=== PATIENT | female | born 1975 | race African-American/Black ===

== ENCOUNTER 2018-02-10 19:01 | Emergency (ER) | payer MEDICAID, OTHER ==
[~2018-02-10] VITALS: Ht 170.2 cm; Wt 79.4 kg
[2018-02-10 19:14] VITALS: BP 135/100
--- NOTE | 2018-02-10 19:18 | NUR ---
TO LOBBY A/W BED, AND XRAY, VSS, VIA W/C, FRANSICO NOTED
--- NOTE | 2018-02-10 19:32 | NUR ---
PT RETURN FROM XRAY TO LOBBY
--- NOTE | 2018-02-10 19:49 | NUR ---
PT TAKEN TO BED 3
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
[2018-02-10] MEDS ORDERED: KETOROLAC 60 MG/2 ML VIAL IM ONE (20:15)
--- NOTE | 2018-02-10 21:16 | NUR ---
Dr. Urbano evaluating patient at bedside.
--- NOTE | 2018-02-10 21:35 | NUR ---
PER VERBAL ORDER FROM DR, ANKLE STIRRUP SPLINT APPLIED TO PT L FOOT. +CSM DISTAL TO WRAP PRIOR TO AND AFTER APPLICATION.
--- NOTE | 2018-02-10 21:39 | NUR ---
PER VERBAL ORDER FROM DR, PT GIVEN INSTRUCTION FOR CRUTCHES. PT DEMONSTRATED PROPER USE FOR APPROXIMATELY 20 FEET, INCLUDING RISING FROM SITTING POSITION AND CLIMBING UP STAIRS. APPROXIMATELY 2 INCH GAP SPACE BETWEEN PT ARMPITS AND START OF CRUTCHES AND PT ELBOWS FLEXED AT 30 DEGREES FROM HANDLES.
[2018-02-10 21:40] VITALS: BP 138/94
--- NOTE | 2018-02-10 21:40 | NUR ---
Patient discharged with v/s stable. Written and verbal after care instructions given and explained. Patient alert, oriented and verbalized understanding of instructions. Ambulatory with steady gait. All questions addressed prior to discharge. ID band removed. Patient advised to follow up with PMD. Rx of NORCO AND MOTRIN given. Patient educated on indication of medication including possible reaction and side effects. Opportunity to ask questions provided and answered.
== END 2018-02-10 21:40 | disposition home or self-care (01) ==
LOC: MED 19:01
DX: S82.832A Other fracture of upper and lower end of left fibula, initial encounter for closed fracture (principal); F17.200 Nicotine dependence, unspecified, uncomplicated; W18.39XA Other fall on same level, initial encounter; Y93.89 Activity, other specified; Y92.89 Other specified places as the place of occurrence of the external cause; Y99.8 Other external cause status
CPT/HCPCS: 29515; 73610; 96372; 99284; J1885

== ENCOUNTER 2018-09-01 10:35 | Emergency (ER) | payer MEDICAID ==
[~2018-09-01] VITALS: Ht 170.2 cm; Wt 81.2 kg
[2018-09-01 10:45] VITALS: BP 130/92
--- NOTE | 2018-09-01 10:47 | NUR ---
PT AMBULATES TO BED 12
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
--- NOTE | 2018-09-01 12:10 | NUR ---
Patient being evaluated by physician at bedside.
[2018-09-01] MEDS ORDERED: KETOROLAC 60 MG/2 ML VIAL IM ONE (12:25)
--- NOTE | 2018-09-01 12:32 | NUR ---
PT TAKEN TO X-RAY
--- NOTE | 2018-09-01 12:48 | NUR ---
PT IS BACK FROM X-RAY
--- NOTE | 2018-09-01 13:00 | NUR ---
PT UP IN BED, AWAKE, ON THE PHONE, EVEN AND UNLABORED BREATHING, VSS.
[2018-09-01] MEDS ORDERED: BACITRACIN OINT 500 UNITS/GM PKT TP ONE (15:05)
[2018-09-01] MEDS ORDERED: CYCLOBENZAPRINE 10 MG TAB PO ONE (15:05)
[2018-09-01 15:25] VITALS: BP 134/88
--- NOTE | 2018-09-01 15:25 | NUR ---
Patient discharged with v/s stable. Written and verbal after care instructions given and explained. Patient alert, oriented and verbalized understanding of instructions. Ambulatory with steady gait. All questions addressed prior to discharge. ID band removed. Patient advised to follow up with PMD. Rx of Ibuprofen, Flexeril given. Patient educated on indication of medication including possible reaction and side effects. Opportunity to ask questions provided and answered.
== END 2018-09-01 15:25 | disposition home or self-care (01) ==
LOC: MED 10:35
DX: M54.2 Cervicalgia (principal); M25.511 Pain in right shoulder; M25.512 Pain in left shoulder
CPT/HCPCS: 72050; 96372; 99283; J1885

== ENCOUNTER 2021-03-18 02:43 | Emergency (ER) | payer MEDICAID ==
[~2021-03-18] VITALS: Ht 170.2 cm; Wt 79.1 kg
[2021-03-18 03:04] VITALS: BP 159/132
[2021-03-18] MEDS ORDERED: NACL 0.9% 1,000 ML IV ONE (03:15)
[2021-03-18] MEDS ORDERED: LORazepam 2 MG/ML VIAL IVP ONE (03:15)
[2021-03-18] MEDS ORDERED: CLONIDINE HYDROCHLORIDE 0.1 MG TAB PO ONE (03:15)
[2021-03-18 03:43] LABS: BASOPHILS # (AUTO) 0.1 K/uL (0.00-0.22); BASOPHILS % (AUTO) 1.2 % (0.0-2.0); EOSINOPHILS # (AUTO) 0.1 K/uL (0-0.4); EOSINOPHILS % (AUTO) 1.8 % (0.0-4.0); HEMATOCRIT 41.9 % (36-48); LYMPHOCYTES # (AUTO) 1.3 K/uL (2.5-16.5); MEAN CORPUSCULAR HEMOGLOBIN 30 pg (27-31); MEAN CORPUSCULAR HGB CONC 33 g/dL (33-37); MEAN CORPUSCULAR VOLUME 90.8 fL (80-94); MONOCYTES # (AUTO) 1.3 K/uL (0.8-1.0); MONOCYTES % (AUTO) 20.1 % (1.7-9.3); NEUTROPHILS # (AUTO) 3.6 K/uL (1.8-7.7); NEUTROPHILS % (AUTO) 56.9 % (42.2-75.2); PLATELET COUNT (AUTO) 408 K/uL (140-450); RED BLOOD CELL COUNT(AUTO) 4.62 MIL/uL (4.20-5.40); RED CELL DISTRIBUTION WIDTH 12.8 % (11.6-13.7); WHITE BLOOD COUNT (AUTO) 6.3 K/uL (4.8-10.8)
[2021-03-18 03:47] LABS: ALBUMIN 4.4 g/dL (3.4-5.0); ANION GAP 17.2 (8-16); CARBON DIOXIDE 23.2 mmol/L (21-32); CREATININE 0.9 mg/dL (0.6-1.3); POTASSIUM 3.4 mmol/L (3.5-5.1); TOTAL BILIRUBIN 0.4 mg/dL (0.0-1.0)
[2021-03-18] MEDS ORDERED: POTASSIUM CHLORIDE 10 MEQ TABER PO ONE (04:05)
[2021-03-18] MEDS ORDERED: AMLO-271 PO (04:12)
[2021-03-18 04:58] VITALS: BP 142/102
--- NOTE | 2021-03-18 04:58 | NUR ---
Patient discharged with v/s stable. Written and verbal after care instructions given and explained. Patient alert, oriented and verbalized understanding of instructions. Ambulatory with steady gait. All questions addressed prior to discharge. ID band removed. Patient advised to follow up with PMD. Rx of AMLODIPINE BESYLATE given. Patient educated on indication of medication including possible reaction and side effects. Opportunity to ask questions provided and answered.
[2021-03-19] MEDS ORDERED: ATA25 PO (09:40)
== END 2021-03-18 04:58 | disposition home or self-care (01) ==
LOC: MED 02:43
DX: R00.2 Palpitations (principal); Z79.899 Other long term (current) drug therapy
CPT/HCPCS: 36415; 80053; 84484; 85025; 93005; 96361; 96374; 99284; J2060; J7030

== ENCOUNTER 2021-03-19 08:37 | Emergency (ER) | payer MEDICAID ==
[~2021-03-19] VITALS: Ht 170.2 cm; Wt 79.4 kg
[~2021-03-19 08:37] MED LIST: AMLO-271 PO
[2021-03-19 08:45] VITALS: BP 159/99
--- NOTE | 2021-03-19 08:56 | NUR ---
PT AMBULATED TO ER BED 4 WITH A STEADY GAIT.
[2021-03-19] MEDS ORDERED: HYDROXYZINE HYDROCHLORIDE 25 MG TAB PO STA (08:57)
--- NOTE | 2021-03-19 08:58 | NUR ---
49 y/o F BIB self for c/o elevated B/P SBP 180. Denies CP, Denies N/V/P. Neuro intact. Able to make all needs known. AOX4. Denies VERNON at this time. B/P: 151/103. PmHx: HTN Allergies: Denies Home Meds: Norvasc
--- NOTE | 2021-03-19 09:14 | NUR ---
Dr Josue at bedside, no blood draw needed per ERMD
--- NOTE | 2021-03-19 09:20 | NUR ---
Per FRANSICO Josue, pt ok to eat. Meal provided.
--- NOTE | 2021-03-19 09:33 | NUR ---
TIMMYD AT BEDSIDE EXPLAINING D/C AND MEDS
[2021-03-19] MEDS ORDERED: ATA25 PO (09:40)
[2021-03-19 09:59] VITALS: BP 145/101
--- NOTE | 2021-03-19 10:02 | NUR ---
Patient discharged with v/s stable. Written and verbal after care instructions given and explained. Patient alert, oriented and verbalized understanding of instructions. Ambulatory with steady gait. All questions addressed prior to discharge. ID band removed. Patient advised to follow up with PMD. Rx of ATARAX HCL given. Patient educated on indication of medication including possible reaction and side effects. Opportunity to ask questions provided and answered. ER MD AWARE OF D/C B/P AND HR.
== END 2021-03-19 09:59 | disposition home or self-care (01) ==
LOC: MED 08:37
DX: I10 Essential (primary) hypertension (principal); F41.9 Anxiety disorder, unspecified; F17.203 Nicotine dependence unspecified, with withdrawal; F12.23 Cannabis dependence with withdrawal; Z79.899 Other long term (current) drug therapy
CPT/HCPCS: 99283

== ENCOUNTER 2021-12-17 12:23 | Emergency (ER) | payer MEDICAID ==
[~2021-12-17] VITALS: Ht 170.2 cm; Wt 72.6 kg
[~2021-12-17 12:23] MED LIST changes: +ATA25 PO
[2021-12-17 12:30] VITALS: BP 146/97
--- NOTE | 2021-12-17 12:41 | NUR ---
Patient wheelchair assisted to bed 6 at this time.
[2021-12-17] MEDS ORDERED: LIDOCAINE MPF 1% 10 MG/ML VIAL INJ ONE (12:55)
[2021-12-17] MEDS ORDERED: ACETAMINOPHEN EXTRA STRENGTH 500 MG TAB PO ONE (13:00)
--- NOTE | 2021-12-17 13:10 | NUR ---
PATIENT MOVED TO ER BED 7.
[2021-12-17] MEDS ORDERED: BACITRACIN OINT 500 UNITS/GM PKT TP ONE (13:25)
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
[2021-12-17] MEDS ORDERED: ACET-10509 PO (14:30)
[2021-12-17] MEDS ORDERED: BACI1PAC6 TP (14:30)
[2021-12-17] MEDS ORDERED: IBUP-2213 PO (14:30)
--- NOTE | 2021-12-17 14:45 | NUR ---
laceration cleaned and wrapped.
[2021-12-17 14:56] VITALS: BP 156/91
--- NOTE | 2021-12-17 14:56 | NUR ---
Patient discharged with v/s stable. Written and verbal after care instructions given and explained. Patient alert, oriented and verbalized understanding of instructions. Ambulatory with steady gait. All questions addressed prior to discharge. ID band removed. Patient advised to follow up with PMD. Rx of TYLENOL BACITRACIN given. Patient educated on indication of medication including possible reaction and side effects. Opportunity to ask questions provided and answered.
--- NOTE | 2021-12-17 15:07 | NUR ---
PATIENT GIVEN CRUTCHES AND INTRUCTED HOW TO USE.
== END 2021-12-17 14:56 | disposition home or self-care (01) ==
LOC: MED 12:23
DX: S81.012A Laceration without foreign body, left knee, initial encounter (principal); I10 Essential (primary) hypertension; Z79.899 Other long term (current) drug therapy; Z79.1 Long term (current) use of non-steroidal anti-inflammatories (NSAID); Z79.2 Long term (current) use of antibiotics; W01.198A Fall on same level from slipping, tripping and stumbling with subsequent striking against other object, initial encounter; Y93.01 Activity, walking, marching and hiking; Y92.89 Other specified places as the place of occurrence of the external cause; Y99.8 Other external cause status
CPT/HCPCS: 12002; 73562; 90471; 90715; 99283; J2001

== ENCOUNTER 2021-12-19 15:37 | Emergency (ER) | payer MEDICAID ==
[~2021-12-19] VITALS: Ht 167.6 cm; Wt 73.5 kg
[~2021-12-19 15:37] MED LIST changes: +ACET-10509 PO; +BACI1PAC6 TP; +IBUP-2213 PO
[2021-12-19 15:42] VITALS: BP 139/97
--- NOTE | 2021-12-19 16:28 | NUR ---
ELENA HARTLEY IN LOBBY, ATTEMPT TO CALL PT, PT NOT IN LOBBY NO RESPONSE
--- NOTE | 2021-12-19 17:00 | NUR ---
ELENA MACIAS PT, NOT FOUND IN LOBBY
--- NOTE | 2021-12-19 17:59 | NUR ---
3RD ATTEMPT ELENA HARTLEY, PT NOT IN LOBBY COULD NOT BE CONTACTED
--- NOTE | 2021-12-19 18:00 | NUR ---
PATIENT LEFT WITHOUT BEING SEEN BY ELENA HARTLEY. NO FURTHER CARE PROVIDED FOR PATIENT.
== END 2021-12-19 16:28 | disposition left against medical advice (07) ==
LOC: MED 15:37
DX: Z48.02 Encounter for removal of sutures (principal); Z53.21 Procedure and treatment not carried out due to patient leaving prior to being seen by health care provider